=== PATIENT | male | born 1970 | race Caucasian/White ===

== ENCOUNTER 2022-08-31 10:31 | Emergency (ER) | payer MEDICARE, MEDICAID, SELFPAY ==
[2022-08-31 10:50] VITALS: BP 122/65; PULSE 69; RESP 18; TEMP 36.6; O2SAT 97; BMI 27.3
--- NOTE | 2022-08-31 11:29 | ED.GENADULT ---
HPI - General Adult General Chief complaint: Dizziness/Vertigo Stated complaint: unbalanced, heart issues Time Seen by Provider: 08/31/22 11:22 History of Present Illness HPI narrative: This 52-year-old male is a resident in a nursing home. He is nonverbal. He comes here for evaluation after 2 or 3 episodes this morning where he appeared to be unsteady temporarily. He did trip over a chair but did not fall. He may grabbed onto a counter for about 30 seconds well symptoms apparently resolved. This happened a couple other times where he stood still and seemed to be managing his balance. At the time of arrival here he appears normal. Review of Systems Status of ROS: Reports: 10 or more systems reviewed and unremarkable except as noted in History and below Narrative: Unable to obtain due to nonverbal status. [facility] Social History Smoking Status: Never smoker Do you use any of these nicotine containing products: None Second hand tobacco smoke exposure: No How often do you have a drink containing alcohol: never How often do you have six or more drinks on one occasion: Never AUDIT-C Alcohol total score: 0 Non-prescribed substance use: denies use service: No Exam Narrative: Exam Narrative: Constitutional: Well-developed, well-nourished, no acute distress. HEENT: Normocephalic, atraumatic. Neck: Normal range of motion. Nontender. Supple. Heart: Regular. No murmurs. Normal rate. Intact distal pulses. Lungs: Clear to auscultation. No chest discomfort. No wheezes, rhonchi, or rales. Abdomen: Normal bowel sounds. Nontender. No rebound tenderness. Genitalia: Deferred. Back: No midline tenderness. Normal range of motion. Extremities: Normal range of motion. No injury. Skin: Intact. No rash. Warm. No erythema or pallor. Neurologic: No altered sensation. No weakness. Alert. No facial asymmetry. No nystagmus. [id number] is normal. No pronator drift. He is able to raise each leg from the bed to touch my hand. Psychiatric: No suicidality. No anxiety or depression. No insomnia. Nursing notes and vitals signs are reviewed. Const: Vital Signs, click to edit/add: Vital Signs - 24 hr 08/31/22 10:50 Temperature 97.9 F Pulse Rate [Pulse Oximeter] 69 Respiratory Rate 18 Blood Pressure [Ri ght Upper Arm] 122/65 Pulse Oximetry 97 Oxygen Delivery Me thod Room Air Course Vital Signs Vital signs: Initial Vital Signs Temperature 97.9 F 08/31/22 10:50 Temperature Source Temporal Artery Scan 08/31/22 10:50 Pulse Rate 69 08/31/22 10:50 Pulse Rhythm Regular 08/31/22 10:50 Respiratory Rate 18 08/31/22 10:50 Blood Pressure 122/65 08/31/22 10:50 Blood Pressure Mean 84 08/31/22 10:50 Blood Pressure Position Sitting 08/31/22 10:50 Pulse Oximetry 97 08/31/22 10:50 Oxygen Delivery Method Room Air 08/31/22 10:50 Vital Signs Temperature 97.9 F 08/31/22 10:50 Pulse Rate 69 08/31/22 10:50 Respiratory Rate 18 08/31/22 10:50 Blood Pressure 122/65 08/31/22 10:50 Pulse Oximetry 97 08/31/22 10:50 Oxygen Delivery Method Room Air 08/31/22 10:50 Temperature 97.9 F 08/31/22 10:50 Pulse Rate 69 08/31/22 10:50 Respiratory Rate 18 08/31/22 10:50 Blood Pressure 122/65 08/31/22 10:50 Pulse Oximetry 97 08/31/22 10:50 Oxygen Delivery Method Room Air 08/31/22 10:50 Medical Decision Making MDM Narrative Medical decision making narrative: This patient is brought in for some brief episodes of appearing to be off balance. These lasted for short amount of time and then his symptoms resolved. Throughout his stay here he is not exhibiting any such symptoms hip. He is able to get up and ambulate. Vital signs are in normal range and lab results also returned with normal findings. This is reassuring to the patient's caregiver. At the time of discharge the patient appears safe for outpatient management. The treatment plan is reviewed along with written and verbal return precautions. Reasons to return and the importance of close followup were also reviewed. Lab Data Labs: Lab Results 08/31/22 Range/Units 11:43 WBC 6.05 (4.50-11.00) K/uL RBC 5.22 (4.30-5.90) m/uL Hgb 15.6 (13.5-17.5) gm/dL Hct 47.2 (37.0-53.0) % MCV 90 (80-100) fL MCH 30 (26-34) pg MCHC 33 (32-36) gm/dL RDW Coeff of Arturo 12.5 (11.5-15.5) % Plt Count 303 (140-440) K/uL Neut % (Auto) 55.9 (42.0-72.0) % Lymph % (Auto) 26.1 (20-44) % [place] % (Auto) 16.0 H (0.0-11.0) % Eos % (Auto) 1.2 (0.0-7.0) % Baso % (Auto) 0.5 (0.0-3.0) % Neut # (Auto) 3.38 (1.7-7.0) K/uL Lymph # (Auto) 1.58 (0.90-2.90) K/uL [place] # (Auto) 1.00 H (0.00-0.90) K/UL Eos # (Auto) 0.07 (0.00-0.50) K/uL Baso # (Auto) 0.03 (0.00-0.30) K/uL Sodium 140 (135-149) mmol/L Potassium 4.1 (3.6-5.1) mmol/L Chloride 106 (96-114) mmol/L Carbon Dioxide 28 (20-32) mmol/L BUN 15 (7-30) mg/dL Creatinine 0.6 (0.5-1.5) mg/dL Estimated Creat Clear 103.01 Estimated GFR 117 ml/min Glucose 106 (60-115) mg/dL Calcium 9.0 (8.4-10.6) mg/dL Discharge Plan Discharge Clinical Impression: Vertigo Patient Disposition: Home w/ Parent or Adult Condition: Improved Additional Instructions: Continue current plans. Follow up with MD or return if symptoms are recurrent or worsening. Follow Up/Referrals: Bruce Aguirre MD [Staff Physician] - Stand Alone Forms: [employer] Info Instructions
[2022-08-31] MEDS: MECLIZINE HCL 25 MG TABLET PO (11:39)
[2022-08-31 11:53] LABS: Basophils Absolute Auto 0.03 K/uL (0.00-0.30); Basophils Percent Auto 0.5 % (0.0-3.0); Eosinophils Absolute Auto 0.07 K/uL (0.00-0.50); Eosinophils Percent Auto 1.2 % (0.0-7.0); Hematocrit 47.2 % (37.0-53.0); Hemoglobin* 15.6 gm/dL (13.5-17.5); Immature Granulocytes Abs Auto 0.02 K/uL (0.00-0.30); Immature Granulocytes Pct Auto 0.3 %; Lymphocytes Absolute Auto 1.58 K/uL (0.90-2.90); Lymphocytes Percent Auto 26.1 % (20-44); Mean Corpuscular HGB Conc 33 gm/dL (32-36); Mean Corpuscular Hemoglobin 30 pg (26-34); Mean Corpuscular Volume 90 fL (80-100); Neutrophils Absolute Auto 3.38 K/uL (1.7-7.0); Neutrophils Percent Auto 55.9 % (42.0-72.0); Platelet Count* 303 K/uL (140-440); RDW Coefficient of Variation % 12.5 % (11.5-15.5); Red Blood Count 5.22 m/uL (4.30-5.90); White Blood Count* 6.05 K/uL (4.50-11.00)
[2022-08-31 11:54] LABS: Slide Review Reflex No
[2022-08-31 12:05] LABS: Chloride* 106 mmol/L (96-114); Sodium* 140 mmol/L (135-149)
[2022-08-31 12:06] LABS: Potassium* 4.1 mmol/L (3.6-5.1)
[2022-08-31 12:08] LABS: Carbon Dioxide* 28 mmol/L (20-32); Creatinine* 0.6 mg/dL (0.5-1.5); Est. Creatinine Clearance* 103.01; Estimated Glomerular Filt Rate 117 ml/min
[2022-08-31 12:09] LABS: Blood Urea Nitrogen* 15 mg/dL (7-30); Glucose* 106 mg/dL (60-115)
== END 2022-08-31 13:18 | disposition home or self-care (01) ==
PROVIDERS: Emergency Provider Emergency Medicine Emergency Medical Services; PCP Family Medicine
DX: R42 Dizziness and giddiness (principal)
CPT/HCPCS: 36415; 80048; 85025; 99283; 99284; A9270

== ENCOUNTER 2023-09-29 14:08 | Outpatient (CLI) | payer OTHER, MEDICARE, MEDICAID, SELFPAY | END 2023-09-29 14:09 | disposition home or self-care (01) | LOC: AMB 09-30 09:05 | PROVIDERS: PCP Family Medicine; Visit Provider Family Medicine | DX: S49.92XA Unspecified injury of left shoulder and upper arm, initial encounter (principal); V49.50XA Passenger injured in collision with unspecified motor vehicles in traffic accident, initial encounter; Y92.410 Unspecified street and highway as the place of occurrence of the external cause | CPT/HCPCS: A0425; A0427 ==

== ENCOUNTER 2023-09-29 14:47 | Emergency (ER) | payer OTHER, MEDICARE, MEDICAID, SELFPAY ==
[2023-09-29 14:56] VITALS: BP 149/76; PULSE 90; RESP 20; TEMP 36.4; O2SAT 97; BMI 23.8
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
--- NOTE | 2023-09-29 15:23 | XR_ITS ---
Patient: KAITLIN CHU Facility:?[facility] Patient ID:?[id number] Site Patient ID:?[id number]. Site :?1970 Study:?XRay-Extremity Left ELBOW 3V-09/29/2023 3:50:32 PM Ordering Physician:ALEJANDRINA ALEMAN Final Report: INDICATION: Posttraumatic pain. COMPARISON: None available. TECHNIQUE: Three views FINDINGS: Limited study as a true lateral was not performed. Normal mineralization and alignment. No fracture or dislocation. No gross joint effusion. IMPRESSION: No acute traumatic injury is identified. Dictated by Byron Paige MD @ 09/29/2023 4:02:00 PM Signed by:?Byron Paige MD @09/29/2023 4:02:00 PM (Electronic Signature)
--- NOTE | 2023-09-29 15:23 | XR_ITS ---
Patient: KAITLIN CHU Facility:?[facility] Patient ID:?[id number] Site Patient ID:?[id number]. Site :?1970 Study:?XRay-Extremity Left SHOULDER 3V-09/29/2023 3:50:06 PM Ordering Physician:ALEJANDRINA ALEMAN Final Report: INDICATION: Posttraumatic pain. COMPARISON: None available. TECHNIQUE: Three views FINDINGS: Normal mineralization and alignment. No fracture is identified. Unremarkable soft tissues. IMPRESSION: No acute traumatic injury is identified. Dictated by Byron Paige MD @ 09/29/2023 4:03:18 PM Signed by:?Byron Paige MD @09/29/2023 4:03:18 PM (Electronic Signature)
== END 2023-09-29 16:25 | disposition home or self-care (01) ==
PROVIDERS: Emergency Provider Family Medicine; PCP Family Medicine
DX: M25.512 Pain in left shoulder (principal); M25.522 Pain in left elbow; T80.90XA Unspecified complication following infusion and therapeutic injection, initial encounter; V43.62XA Car passenger injured in collision with other type car in traffic accident, initial encounter
CPT/HCPCS: 73030; 73080; 99283; 99284